=== PATIENT | male | born 1995 | race African-American/Black ===

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

== ENCOUNTER 2017-12-24 15:43 | Emergency (ER) | payer OTHER ==
[~2017-12-24] VITALS: Ht 175.3 cm; Wt 104.3 kg
[~2017-12-24 15:43] MED LIST changes: +PHENERGAN 25 MG25 M1 PO; +ZOFRAN ODT4 MG PO
[2017-12-24] MEDS ORDERED: AMITRIPTYLINE H25 M2 PO ×2 (16:15→16:18)
[2017-12-24] MEDS ORDERED: SYNTHROID50 MCG PO ×2 (16:16→16:18)
[2017-12-24] MEDS ORDERED: QUETIAPINE FUM100 MG PO ×2 (16:16→16:18)
[2017-12-24] MEDS ORDERED: DEPAKOTE ER500 MG PO (16:16)
[2017-12-24] MEDS ORDERED: LOXAPINE5 MG PO ×2 (16:16→16:18)
[2017-12-24] MEDS ORDERED: DEPAKOTE 250MG250 M1 PO (16:18)
[2017-12-24 16:27] LABS: BASOPHILS 0.9 % (0.0-2.0); EOSINOPHILS 2.1 % (0.0-3.0); HEMATOCRIT 47.9 % (42.0-52.0); HEMOGLOBIN 16.4 gm/dL (14.0-18.0); LYMPHOCYTES 34.9 % (24.0-44.0); MCH 28.8 pg (26.0-34.0); MCHC 34.2 g/dL (28.0-37.0); MCV 84.3 fL (80.0-100.0); MONOCYTES 8.6 % (1.0-8.0); PLATELET COUNT 198 thou/uL (150-400); POLYS 53.5 % (36.0-66.0); RBC 5.68 mil/uL (4.50-6.00); RDW 13.1 % (10.5-14.5); WBC 5.6 thou/uL (4.0-11.0)
[2017-12-24 16:37] LABS: ANION GAP 8 mmol/L (7-16); BUN 10 mg/dL (7-18); CALCIUM 9.5 mg/dL (8.5-10.1); CHLORIDE 107 mmol/L (98-107); CO2 22 mmol/L (21-32); CREATININE 0.9 mg/dL (0.7-1.3); GLUCOSE 128 mg/dL (74-106); POTASSIUM 3.7 mmol/L (3.5-5.1); SODIUM 137 mmol/L (136-145)
[2017-12-24 16:43] LABS: ALBUMIN 3.9 g/dL (3.4-5.0); DIRECT BILIRUBIN 0.1 mg/dL (<0.1-0.3); SALICYLATE < 2.8 mg/dL (2.8-20.0); SGOT 17 U/L (15-37); SGPT 21 U/L (30-65); TOTAL BILIRUBIN 0.4 mg/dL (<0.1-1.0)
[2017-12-24 17:10] LABS: URINE BILIRUBIN NEGATIVE (Negative); URINE BLOOD NEGATIVE (Negative); URINE CLARITY CLEAR; URINE COLOR YELLOW; URINE GLUCOSE-RANDOM* NEGATIVE (Negative); URINE KETONES NEGATIVE (Negative); URINE LEUKOCYTES NEGATIVE (Negative); URINE NITRITE NEGATIVE (Negative); URINE PROTEIN (DIPSTICK) NEGATIVE (Negative); URINE SPECIFIC GRAVITY 1.015 (1.005-1.035)
[2017-12-24 17:19] LABS: AMP/METHAMP Negative (Negative); BARBITURATES Negative (Negative); BENZODIAZEPINES Negative (Negative); COCAINE Negative (Negative); METHADONE Negative (Negative); OPIATES Negative (Negative); PCP Negative (Negative)
== END 2017-12-24 19:52 | disposition home or self-care (01) ==
LOC: ER 15:43
PROVIDERS: Physician Assistant
DX: R45.851 Suicidal ideations (principal); F90.9 Attention-deficit hyperactivity disorder, unspecified type; F29 Unspecified psychosis not due to a substance or known physiological condition

== ENCOUNTER 2017-12-30 19:06 | Emergency (ER) | payer OTHER ==
[~2017-12-30] VITALS: Ht 177.8 cm; Wt 97.5 kg
[~2017-12-30 19:06] MED LIST changes: +AMITRIPTYLINE H25 M2 PO; +DEPAKOTE 250MG250 M1 PO; +DEPAKOTE ER500 MG PO; +LOXAPINE5 MG PO; +QUETIAPINE FUM100 MG PO; +SYNTHROID50 MCG PO
[2017-12-30 20:26] VITALS: BP 118/85
== END 2017-12-30 20:27 | disposition home or self-care (01) ==
LOC: ER 19:06
DX: F60.3 Borderline personality disorder (principal); R45.851 Suicidal ideations; F90.9 Attention-deficit hyperactivity disorder, unspecified type; F39 Unspecified mood [affective] disorder

== ENCOUNTER 2018-01-08 20:14 | Emergency (ER) | payer OTHER ==
[~2018-01-08] VITALS: Ht 177.8 cm; Wt 97.5 kg
[2018-01-08 21:18] LABS: HEMATOCRIT 48.4 % (42.0-52.0); HEMOGLOBIN 16.3 gm/dL (14.0-18.0); MCH 28.8 pg (26.0-34.0); MCHC 33.7 g/dL (28.0-37.0); MCV 85.3 fL (80.0-100.0); RBC 5.67 mil/uL (4.50-6.00); RDW 13.4 % (10.5-14.5); WBC 6.1 thou/uL (4.0-11.0)
[2018-01-08 21:28] LABS: AMP/METHAMP POSITIVE (Negative); BARBITURATES Negative (Negative); BENZODIAZEPINES Negative (Negative); COCAINE Negative (Negative); METHADONE Negative (Negative); OPIATES Negative (Negative); PCP Negative (Negative)
[2018-01-08 21:34] LABS: ANION GAP 10 mmol/L (7-16); BUN 15 mg/dL (7-18); CALCIUM 9.4 mg/dL (8.5-10.1); CHLORIDE 103 mmol/L (98-107); CO2 22 mmol/L (21-32); CREATININE 1.2 mg/dL (0.7-1.3); GLUCOSE 168 mg/dL (74-106); POTASSIUM 3.6 mmol/L (3.5-5.1); SODIUM 135 mmol/L (136-145)
[2018-01-08 21:37] LABS: SALICYLATE < 2.8 mg/dL (2.8-20.0)
[2018-01-09 00:18] VITALS: BP 122/78
== END 2018-01-09 00:19 | disposition home or self-care (01) ==
LOC: ER 20:14
PROVIDERS: Physician Assistant
DX: F63.81 Intermittent explosive disorder (principal); R45.4 Irritability and anger; R45.6 Violent behavior; F90.9 Attention-deficit hyperactivity disorder, unspecified type

== ENCOUNTER 2018-01-16 21:23 | Emergency (ER) | payer OTHER ==
[~2018-01-16] VITALS: Ht 172.7 cm; Wt 97.1 kg
[2018-01-16 22:08] LABS: BASOPHILS 0.7 % (0.0-2.0); EOSINOPHILS 1.2 % (0.0-3.0); HEMATOCRIT 45.6 % (42.0-52.0); HEMOGLOBIN 15.6 gm/dL (14.0-18.0); LYMPHOCYTES 33.1 % (24.0-44.0); MCH 28.7 pg (26.0-34.0); MCHC 34.2 g/dL (28.0-37.0); MCV 83.9 fL (80.0-100.0); MONOCYTES 7.3 % (1.0-8.0); PLATELET COUNT 190 thou/uL (150-400); POLYS 57.7 % (36.0-66.0); RBC 5.44 mil/uL (4.50-6.00); RDW 13.2 % (10.5-14.5); WBC 5.3 thou/uL (4.0-11.0)
[2018-01-16 22:16] LABS: ANION GAP 14 mmol/L (7-16); BUN 8 mg/dL (7-18); CALCIUM 9.5 mg/dL (8.5-10.1); CHLORIDE 105 mmol/L (98-107); CO2 22 mmol/L (21-32); CREATININE 1.3 mg/dL (0.7-1.3); GLUCOSE 138 mg/dL (74-106); POTASSIUM 3.5 mmol/L (3.5-5.1); SODIUM 141 mmol/L (136-145)
[2018-01-16 22:22] LABS: DIRECT BILIRUBIN < 0.1 mg/dL (<0.1-0.3); SALICYLATE < 2.8 mg/dL (2.8-20.0); SGOT 14 U/L (15-37); SGPT 16 U/L (30-65); TOTAL BILIRUBIN 0.3 mg/dL (<0.1-1.0)
[2018-01-16 22:52] LABS: URINE BILIRUBIN NEGATIVE (Negative); URINE BLOOD NEGATIVE (Negative); URINE CLARITY CLEAR; URINE COLOR YELLOW; URINE GLUCOSE-RANDOM* NEGATIVE (Negative); URINE KETONES TRACE (Negative); URINE LEUKOCYTES NEGATIVE (Negative); URINE NITRITE NEGATIVE (Negative); URINE PROTEIN (DIPSTICK) TRACE (Negative); URINE SPECIFIC GRAVITY 1.025 (1.005-1.035); URINE UROBILINOGEN 0.2 E.U./dl (0.2-1.0)
[2018-01-16 23:12] LABS: AMP/METHAMP POSITIVE (Negative); BARBITURATES Negative (Negative); BENZODIAZEPINES Negative (Negative); COCAINE Negative (Negative); METHADONE Negative (Negative); OPIATES Negative (Negative); PCP Negative (Negative)
[2018-01-17] MEDS ORDERED: ZENZEDI2.5 MG PO (00:10)
[2018-01-17] MEDS ORDERED: SEROQUEL 50 MG50 MG PO (19:29)
[2018-01-17 19:44] VITALS: BP 122/82
== END 2018-01-17 19:46 | disposition home or self-care (01) ==
LOC: ER 21:23
PROVIDERS: Physician Assistant
DX: R45.851 Suicidal ideations (principal); R45.850 Homicidal ideations

== ENCOUNTER 2018-02-05 16:11 | Emergency (ER) | payer OTHER ==
[~2018-02-05] VITALS: Ht 175.3 cm; Wt 81.7 kg
[~2018-02-05 16:11] MED LIST changes: +ZENZEDI2.5 MG PO
[2018-02-05] MEDS ORDERED: TOPAMAX50 MG PO (18:50)
[2018-02-05 20:24] LABS: HEMATOCRIT 45.8 % (42.0-52.0); HEMOGLOBIN 15.7 gm/dL (14.0-18.0); MCH 28.6 pg (26.0-34.0); MCHC 34.4 g/dL (28.0-37.0); MCV 83.2 fL (80.0-100.0); RBC 5.5 mil/uL (4.50-6.00); RDW 13.4 % (10.5-14.5); WBC 6.9 thou/uL (4.0-11.0)
[2018-02-05 20:32] LABS: ANION GAP 9 mmol/L (7-16); BUN 15 mg/dL (7-18); CALCIUM 9.2 mg/dL (8.5-10.1); CHLORIDE 106 mmol/L (98-107); CO2 22 mmol/L (21-32); CREATININE 1.1 mg/dL (0.7-1.3); GLUCOSE 108 mg/dL (74-106); POTASSIUM 3.2 mmol/L (3.5-5.1); SODIUM 137 mmol/L (136-145)
[2018-02-05 20:36] LABS: SALICYLATE < 2.8 mg/dL (2.8-20.0)
[2018-02-06 00:19] VITALS: BP 144/88
== END 2018-02-06 00:20 | disposition home or self-care (01) ==
LOC: ER 16:11
PROVIDERS: Emergency Medicine
DX: R45.6 Violent behavior (principal); F90.9 Attention-deficit hyperactivity disorder, unspecified type; F84.5 Asperger's syndrome; F63.81 Intermittent explosive disorder